=== PATIENT | female | born 1950 | race African-American/Black ===

== ENCOUNTER 2024-07-17 13:40 | Emergency (ER) | payer OTHER, MEDICAID ==
[~2024-07-17] VITALS: Ht 167.6 cm; Wt 85.0 kg
[~2024-07-17 13:40] MED LIST: AMLO10TA80 PO; AMOX1TAB16 MT; ATOR40TA70 PO; CARV25TA47 PO; HYDR25TA MT; METH4TAB95 MT
[2024-07-17 14:01] VITALS: O2SAT 95
[2024-07-17 15:09] LABS: BASOPHILS % 1.1 % (0.0-2.0); EOSINOPHILS % 3.5 % (0.0-5.0); HEMATOCRIT. 40.6 % (36.0-48.0); HEMOGLOBIN. 13.5 g/dL (12.0-16.0); LYMPHOCYTES % 40.3 % (20.0-50.0); MEAN CORPUSCULAR HEMOGLOBIN 31.8 pg (28.0-32.0); MEAN CORPUSCULAR HGB CONC 33.2 g/dL (31.0-37.0); MEAN CORPUSCULAR VOLUME 95.5 fL (81.0-99.0); MEAN PLATELET VOLUME 8.4 fl (7.4-10.4); MONOCYTES % 8.2 % (2.0-8.0); NEUTROPHILS % 46.9 % (40.0-76.0); PLATELET 326 x1000/uL (130-400); RED BLOOD CELL COUNT 4.25 mill/uL (4.2-5.4); RED CELL DISTRIBUTION WIDTH 16.1 % (11.6-14.6); WHITE BLOOD COUNT 8.3 x1000/uL (4.5-11.0)
[2024-07-17 15:22] LABS: CHLORIDE 106 mEq/L (98-107); POTASSIUM 3.9 mEq/L (3.5-5.1); SODIUM 141 mEq/L (136-145)
[2024-07-17 15:23] LABS: CALCIUM 9.1 mg/dL (8.7-10.4); CARBON DIOXIDE 27 mEq/L (21-32)
[2024-07-17 15:28] LABS: CREATININE 0.8 mg/dL (0.6-1.0); GLUCOSE 101 mg/dL (70-105); UREA NITROGEN BLOOD 12 mg/dL (9-23)
[2024-07-17 15:29] LABS: TROPONIN I HIGH SENSITIVITY 6 ng/L (3.0-34)
[2024-07-17] MEDS ORDERED: ALBU18HF2 IH (15:53)
[2024-07-17] MEDS ORDERED: P50 MT (15:53)
[2024-07-17] MEDS ORDERED: GUAI-450 MT (15:53)
[2024-07-17 17:29] VITALS: BP 137/84; PULSE 92; RESP 21; TEMP 36.78072; O2SAT 97
== END 2024-07-17 17:31 | disposition home or self-care (01) ==
LOC: ER 13:40
DX: B34.9 Viral infection, unspecified (principal); J20.8 Acute bronchitis due to other specified organisms; I10 Essential (primary) hypertension; Z79.899 Other long term (current) drug therapy; Z88.1 Allergy status to other antibiotic agents
CPT/HCPCS: 36415; 71045; 80048; 84484; 85025; 93005; 99285

== ENCOUNTER 2025-01-17 18:02 | Emergency (ER) | payer OTHER, MEDICAID ==
[~2025-01-17] VITALS: Ht 154.9 cm; Wt 81.0 kg
[~2025-01-17 18:02] MED LIST changes: +ALBU18HF2 IH; +GUAI-450 MT; +P50 MT
[2025-01-17 18:15] VITALS: TEMP 36.7; O2SAT 98
[2025-01-17] MEDS: ACETAMINOPHEN 325MG TABLET PO ONE (19:11)
[2025-01-17] MEDS ORDERED: NAPR-1176 MT (19:29)
[2025-01-17 19:34] VITALS: BP 144/85; PULSE 72; RESP 16; O2SAT 100
== END 2025-01-17 19:41 | disposition home or self-care (01) ==
LOC: ER 18:02
DX: M79.671 Pain in right foot (principal); I10 Essential (primary) hypertension; Z79.899 Other long term (current) drug therapy; Z88.1 Allergy status to other antibiotic agents
CPT/HCPCS: 73630; 93971; 99284

== ENCOUNTER 2025-02-20 18:36 | Emergency (ER) | payer OTHER ==
[~2025-02-20] VITALS: Ht 160 cm; Wt 70.0 kg
[~2025-02-20 18:36] MED LIST changes: +NAPR-1176 MT
[2025-02-20 19:48] LABS: BASOPHILS % 1.5 % (0.0-2.0); EOSINOPHILS % 6.9 % (0.0-5.0); HEMATOCRIT. 39.8 % (36.0-48.0); HEMOGLOBIN. 13.4 g/dL (12.0-16.0); LYMPHOCYTES % 42.9 % (20.0-50.0); MEAN PLATELET VOLUME 8.9 fl (7.4-10.4); MONOCYTES % 11.3 % (2.0-8.0); NEUTROPHILS % 37.4 % (40.0-76.0); PLATELET 242 x1000/uL (130-400); RED BLOOD CELL COUNT 4.26 mill/uL (4.2-5.4); RED CELL DISTRIBUTION WIDTH 16.6 % (11.6-14.6)
[2025-02-20 20:09] LABS: CREATININE 0.8 mg/dL (0.6-1.0); UREA NITROGEN BLOOD 18 mg/dL (9-23)
[2025-02-20 20:11] LABS: TROPONIN I HIGH SENSITIVITY 7 ng/L (3.0-34)
[2025-02-20] MEDS: METHYLPREDNISOLONE SOD SUCC 125MG/2ML (ACT-O-VIAL) IV ONE (20:11)
[2025-02-20] MEDS: MAGNESIUM 2 G PREMIX 50 ML IV ONE (20:12)
[2025-02-20] MEDS: POTASSIUM CHLORIDE 20MEQ TABLET SR PO STA (20:25)
[2025-02-20] MEDS: IPRATROPIUM/ALBUTEROL 0.5-3(2.5)MG/3ML NEB HHN ONE (20:50)
[2025-02-20 21:06] VITALS: PULSE 65; RESP 20; O2SAT 96
[2025-02-20 21:11] LABS: INR 1.0
[2025-02-20] MEDS ORDERED: BENZ100C86 MT (21:29)
[2025-02-20] MEDS ORDERED: P50 MT (21:29)
[2025-02-20] MEDS ORDERED: AZIT250T12 MT (21:29)
[2025-02-20] MEDS ORDERED: NIRM1TAB8 PO (21:31)
[2025-02-20 21:44] LABS: INFLUENZA TYPE A Presumptive Negative (Pres. Neg.)
[2025-02-20 21:46] LABS: INFLUENZA TYPE B Presumptive Negative (Pres. Neg.)
[2025-02-20] MEDS: POTASSIUM CHLORIDE 20MEQ TABLET SR PO ONE (22:03)
[2025-02-20 22:13] VITALS: BP 155/80; PULSE 65; RESP 14; TEMP 36.9; O2SAT 95
== END 2025-02-20 22:15 | disposition home or self-care (01) ==
LOC: ER 18:36
DX: U07.1 COVID-19 (principal); J12.82 Pneumonia due to coronavirus disease 2019; J45.901 Unspecified asthma with (acute) exacerbation; I10 Essential (primary) hypertension; Z88.1 Allergy status to other antibiotic agents; Z79.899 Other long term (current) drug therapy
CPT/HCPCS: 99285; 96365; 71045; 96375; 80048; 83880; 85025; 85610; 84484; 87804 ×2; 36415; 94640; 93005; J2919; J3475; 94070